=== PATIENT | female | born 1950 | race Two or more races ===

== ENCOUNTER 2018-02-19 20:27 | Emergency (ER) | payer OTHER ==
[~2018-02-19] VITALS: Ht 160 cm; Wt 75.0 kg
[2018-02-19] MEDS ORDERED: KETOROLAC 15MG/ML VIAL IV ONE (23:15)
[2018-02-20] MEDS ORDERED: ONDANSETRON HCL 4MG/2ML VIAL IV ONE (00:30)
[2018-02-20] MEDS ORDERED: HYDROCODONE/ACETAMINOPHEN 10/325MG TABLET PO ONE (01:00)
[2018-02-20] MEDS ORDERED: IBUPROFEN 600MG TABLET PO ONE (01:45)
[2018-02-20 03:00] VITALS: BP 154/76
== END 2018-02-20 04:20 | disposition home or self-care (01) ==
LOC: ER 20:27
DX: S42.252A Displaced fracture of greater tuberosity of left humerus, initial encounter for closed fracture (principal); R55 Syncope and collapse; W18.2XXA Fall in (into) shower or empty bathtub, initial encounter; Y93.F1 Activity, caregiving, bathing; Y92.9 Unspecified place or not applicable; I10 Essential (primary) hypertension; Z90.49 Acquired absence of other specified parts of digestive tract; Z88.5 Allergy status to narcotic agent
CPT/HCPCS: 70450; 72125; 73030; 96374; 96375; 99284; J1885; J2405; A4565